=== PATIENT | female | born 1950 | race Caucasian/White ===

== ENCOUNTER 2024-02-06 11:09 | Emergency (ER) | payer MEDICARE, SELFPAY ==
[2024-02-06 11:12] VITALS: BP 141/95
[2024-02-06] MEDS: NSS 1000 IV (13:30)
[2024-02-06] MEDS: ZOFRAN 4 MG IV (13:30)
[2024-02-06 13:45] LABS: % Basophils 0.3 % (0-2); % Eosinophils 0.1 % (0-6); % Immature Granulocytes 0.4 % (0-0.5); % Monocytes 6.5 % (1.7-9.3); % Neutrophils 75.7 % (42.2-75.2); Absolute Lymphocytes 1.8 10^3/uL (1.2-3.4); Absolute Monocytes 0.7 10^3/uL (0.1-0.6); Hematocrit 41.9 % (37.0-47.0); Hemoglobin 13.9 g/dL (12.0-16.0); Mean Corp Hgb Conc. 33.2 g/dL (33.0-37.0); Mean Corpuscular Volume 90.5 fL (81.0-99.0); Mean Platelet Volume 8.7 fL (7.4-10.4); Nucleated Red Blood Cells % 0 %; Platelet Count 225 10^3/uL (130-400); Red Blood Cell Count 4.63 10^6/uL (4.20-5.40); Red Cell Dist. Width 12.2 % (11.5-14.5); White Blood Cell Count 10.5 10^3/uL (4.8-10.8)
[2024-02-06 13:57] LABS: ALT (SGPT) 23 U/L (0-35); AST (SGOT) 29 U/L (14-36); Albumin 5.1 g/dl (3.5-5.0); Alkaline Phosphatase 46 U/L (38-126); Blood Urea Nitrogen 11 mg/dl (7-17); Calcium 9.7 mg/dl (8.4-10.2); Carbon Dioxide 25 mmol/L (22-30); Chloride 100 mmol/L (98-107); Glucose 108 mg/dl (70-99); Magnesium 2.1 mg/dl (1.6-2.3); Potassium 3.9 mmol/L (3.5-5.1); Sodium 138 mmol/L (135-145); Total Bilirubin 1.1 mg/dl (0.2-1.3); eGFR > 60.00
[2024-02-06 14:08] LABS: Troponin I < 0.012 ng/ml
[2024-02-06 14:19] LABS: Urine Albumin Negative (Neg - Trace); Urine Bilirubin Negative (Negative); Urine Character Clear (Clear); Urine Color Yellow; Urine Glucose Negative (Negative); Urine Ketone Negative (Negative); Urine Leukocyte Trace (Negative); Urine Nitrite Negative (Negative); Urine Occult Blood 2+ (Negative); Urine Urobilinogen Negative (Neg - 1+); Urine pH 6.5 (5.0-9.0)
[2024-02-06 14:30] LABS: Urine Bacteria Few (Negative); Urine Red Blood Cell 0-2 /HPF (0-2); Urine White Cell 0-2 /HPF (0-5)
--- NOTE | 2024-02-06 14:30 | ED.GENMED ---
History of Present Illness
General
Chief Complaint: Abdominal Symptoms
Source: patient
Exam Limitations: none
Time Seen by Provider: 02/06/24 12:58
Nursing documentation reviewed up to this point in time: agreed with
History of Present Illness
History of Present Illness:
73-year-old female with past medical history of hypertension hyperlipidemia presenting to the emergency department today with concerns of feeling generally sick nausea and vomiting throughout the day today with generalized weakness and some achiness
into the shoulder and neck. Also felt some anxiety.
Review of Systems
Review of Systems
Allergies reviewed?: Yes
All Other Systems: ROS reviewed and negative except as documented in HPI and ROS
Phy Exam
Physical Exam
Physical Exam:
GENERAL: Alert , in no apparent distress
EYE: pupils equal and reactive
NECK: Supple, no significant adenopathy.
ENT: o/p clr, mmm.
CARDIAC: Regular rate and rhythm .
LUNGS: Clear breath sounds bilaterally, no acute respiratory distress, no wheezes/rales/rhonchi
ABDOMEN: Soft, without focal tenderness, no r/g, no cvat
NEUROLOGICAL: Alert and oriented, no focal neuro deficits
SKIN: Warm and dry, skin intact.
MUSCULOSKELETAL: No edema, well perfused.
PSYCH: Normal and appropriate interaction.
Course
Orders/Labs/Results
Orders:
Orders
02/06/24 11:16
ECG [Electrocardiogram (*1)] Urgent
Reason for Study: Other
Other Reason for Exam: abdominal symptoms
02/06/24 11:17
EKG- Treatment ONCE
02/06/24 13:25
0.9% Sodium Chloride 1000 ml [Nss] 1,000 ml IV BOLUS
Ondansetron Injectable [Zofran] 4 mg IV NOW STA
CR Chest - 2 Views Urgent
Comment:
Reason For Exam: cp
02/06/24 13:28
Complete Blood Count/With Diff Urgent
Comprehensive Metabolic Panel Urgent
Magnesium Urgent
Troponin I Urgent
02/06/24 14:11
Urine Culture Reflexed from UA [Urinalysis Reflex To Culture] Urgent
Date Specimen was Collected: 02/06/24
Time Specimen was Collected: 14:09
Urine Microscopic Reflex Cult Urgent
Abnormal Lab Results
02/06/24 02/06/24
13:28 14:11
Absolute Neuts (auto) 8.0 H 10^3/uL
(1.4-6.5)
Absolute Monos (auto) 0.7 H 10^3/uL
(0.1-0.6)
Neutrophils % 75.7 H %
(42.2-75.2)
Lymphocytes % 17.0 L %
(20.5-51.1)
Glucose 108 H mg/dl
(70-99)
Albumin 5.1 H g/dl
(3.5-5.0)
Ur Occult Blood Reflex 2+ A
(Negative)
Leukocyte Esterase Rfl Trace A
(Negative)
Urine Bacteria (Reflex) Few A
(Negative)
02/06/24 13:28
02/06/24 13:28
Vital Signs
Initial and Last Documented VS:
Initial Vital Signs
Temp Pulse Resp BP Pulse Ox
98.0 F 85 20 141/95 99
02/06/24 11:12 02/06/24 11:12 02/06/24 11:12 02/06/24 11:12 02/06/24 11:12
Last Documented Vital Signs
Temp Pulse Resp BP Pulse Ox
98.0 F 82 18 140/72 99
02/06/24 11:12 02/06/24 14:37 02/06/24 14:37 02/06/24 14:37 02/06/24 14:37
MDM/Problems Addressed
MDM/Problems Addressed:
73-year-old female presenting to the emergency department today with concerns of feeling generally sick achy associated nausea 1 episode of vomiting since yesterday. Feeling also some anxiety. Initial EKG normal vital signs normal labs
unremarkable troponin negative urinalysis normal. Patient without evidence of ACS stable for outpatient close follow-up with cardiology.
*Critical Care Note
Total Time (30-74mins, 75-104mins- exclusive of procedures): Not Applicable
ED Attending Note
-
Portions of this chart may have been created with voice recognition software.� Occasional wrong word or��sound alike� substitutions may have occurred due to the inherent limitations of voice recognition software.
Discharge Plan
Departure
Patient Disposition: Home (Routine Discharge)
Date of Disposition: 02/06/24
Time of Disposition: 15:01
Patient with high blood pressure during this ER visit?: No
Condition: Good
Covid-19: Not Applicable
Discharge Problem:
Chest pain
Instructions: Chest Pain CBC Follow Up
Referrals:
Alejandro Simon MD [Family Provider] -
Activity Restrictions/Additional Instructions:
You came to the emergency department today with concerns of nausea vomiting shoulder pain. Here you had a reassuring assessment. Please follow closely with cardiology. Return to the emergency department for any worsening, new or concerning
symptoms.
Interventions
Interventions:
*Risk Screen - Suicide Last Done: 02/06/24 11:16
ED- Fall Risk Assessment Last Done: 02/06/24 11:27
[facility] Assessment Last Done: 02/06/24 11:27
Discharge Date and Time
Print Language: [place]
[2024-02-06 14:37] VITALS: BP 140/72
[2024-02-06 15:36] VITALS: BP 133/72
== END 2024-02-06 15:37 | disposition home or self-care (01) ==
LOC: EMR 11:09
PROVIDERS: Physician Assistant; EMERGENCY PHYSICIAN Emergency Medicine; FAMILY PHYSICIAN Internal Medicine
DX: R11.2 Nausea with vomiting, unspecified (principal); R07.89 Other chest pain; R53.1 Weakness; M25.511 Pain in right shoulder; M54.2 Cervicalgia; F41.9 Anxiety disorder, unspecified; I10 Essential (primary) hypertension; E78.5 Hyperlipidemia, unspecified; K90.0 Celiac disease; M79.7 Fibromyalgia; E03.9 Hypothyroidism, unspecified; R73.03 Prediabetes; Z88.2 Allergy status to sulfonamides; Z91.018 Allergy to other foods; Z91.048 Other nonmedicinal substance allergy status
CPT/HCPCS: 99284; 96374; 96361; 71046; 80053; 81003; 81015; 83735; 84484; 85025; 93005

== ENCOUNTER → 2025-01-24 14:29 | Outpatient (REF) | payer MEDICARE, SELFPAY | LOC: RAD 14:29 | PROVIDERS: ATTENDING PHYSICIAN Internal Medicine Rheumatology; FAMILY PHYSICIAN Internal Medicine | DX: M81.0 Age-related osteoporosis without current pathological fracture (principal) | CPT/HCPCS: 77080 ==